=== PATIENT | female | born 2000 | race Caucasian/White ===

== ENCOUNTER → 2021-04-02 11:16 | Outpatient (REF) | payer OTHER, SELFPAY | LOC: ANHLAB 11:16 | PROVIDERS: PCP Family Medicine; Visit Provider Nurse Practitioner | DX: D22.5 Melanocytic nevi of trunk (principal) | CPT/HCPCS: 88305 ==

== ENCOUNTER 2024-02-01 19:26 | Emergency (ER) | payer OTHER, SELFPAY ==
--- NOTE | ~2024-02-01 | CT_ITS ---
CT abdomen pelvis w con Ordering provider: Vanesa Diaz PA-C History: 23 years Female with . RLQ abdominal pain . Comparison: None. Technique: CT abdomen and pelvis with IV and without oral contrast. Automated exposure control and it erative reconstruction technique were employed. The dose-length product was 263.88 mGy-cm. 100 mL Omnipaque 350 was given IV. Findings: VISUALIZED LOWER CHEST: Normal. UPPER ABDOMINAL ORGANS: Liver: Normal. Gallbladder: Normal. Spleen: Normal. Stomach/duodenum: Slightly thickened wall of the stomach. Pancreas: Normal. Slightly prominent pancreatic duct. Adrenals: Normal. Kidneys: Tiny cyst in the left kidney midpole. PELVIC ORGANS: The bladder is underfilled. Uterus: Possibility of arcuate uterus is not excluded. Small left ovarian cyst measuring 1.8 cm. BOWEL AND MESENTERY: Colon: No evidence of diverticulitis. Appendix is normal with minimal fat stranding seen in the right lower quadrant Small Bowel: Normal. No obstruction. Peritoneum/mesentery: No free air or free fluid. No mesenteric lymphadenopathy. RETROPERITONEUM: Normal aorta. No retroperitoneal lymphadenopathy. MUSCULOSKELETAL: Superficial soft tissues: The superficial soft tissues are normal. Bones: Normal spine. IMPRESSION: 1. No definite evidence of appendicitis or intestinal obstruction. 2. Possible arcuate uterus. Ultrasound evaluation advised. Reviewed, dictated and finalized at location A.
[2024-02-01 19:30] VITALS: BP 110/68; PULSE 64; RESP 14; TEMP 36.7; O2SAT 100
[2024-02-01 21:09] VITALS: BP 137/94; PULSE 62; RESP 16; O2SAT 100
[2024-02-01 21:47] LABS: Hematocrit 43.8 % (37.0-47.0); Hemoglobin 15.2 g/dL (12.0-15.0); Mean Corpuscular HGB Conc 34.7 g/dl (32-36); Mean Corpuscular Hemoglobin 32.1 pg (26-34); Mean Corpuscular Volume 92.6 fl (80-100); Mean Platelet Volume 9.8 fl (7.4-10.4); Platelet Count Result 384 k/mm3 (150-375); Red Blood Count 4.73 M/mm3 (4.2-5.4); Red Cell Distribution Width 11.5 % (11.5-14.5); White Blood Count 20.1 K/mm3 (4.5-10.0)
[2024-02-01 21:57] LABS: Alanine Aminotransferase 32 U/L (6-35); Albumin Level 5.4 g/dL (3.5-5.1); Alkaline Phosphatase 85 U/L (38-126); Anion Gap 13 mmol/L (4-12); Aspartate Amino Transferase 41 U/L (14-36); Bilirubin,Total 2.5 mg/dL (0.2-1.3); Blood Urea Nitrogen 27 mg/dL (7-17); Carbon Dioxide 30 mmol/L (22-30); Chloride 92 mmol/L (98-107); Estimated CRCL calculation 73 ml/min; Estimated Glomerular Filt Rate > 60; Glucose 122 mg/dL (65-110); Lipase 115 U/L (23-300); Potassium 3.5 mmol/L (3.4-5.0); Sodium 135 mmol/L (137-145)
[2024-02-01] MEDS: SODIUM CHLORIDE 0.9% IV 1,000 ML 999 ML IV CONT ×2 (22:13→23:11)
[2024-02-01] MEDS: METOCLOPRAMIDE HCL INJ 10 MG/2 ML VIAL IV PUSH (22:14)
[2024-02-01] MEDS: diphenhydrAMINE HCl INJ 50 MG/ML VIAL 25 MG IV PUSH (22:14)
[2024-02-01 22:17] LABS: Lymphocytes Absolute Manual 2.21 K/mm3 (1.1-4.5); Monocytes Absolute Manual 2.01 K/mm3 (0.1-0.90); Monocytes Percent Manual 10 % (3-9); Neutrophils Percent Manual 79 % (46-73); Platelet Estimate Slightly Increased (Adequate); Total Cells Counted 100
[2024-02-01 22:18] LABS: Schistocytes None Seen
[2024-02-01 22:30] LABS: BEDSIDEPREGUCG Negative (Negative)
--- NOTE | 2024-02-01 22:33 | ED.ABDPAIN ---
HPI - Abdominal Pain General Chief Complaint: Abdominal Pain Stated Complaint: appendicitis Time Seen by Provider: 02/01/24 21:15 Source: patient Mode of arrival: ambulatory Limitations: no limitations History of Present Illness HPI narrative: This is a 23 year old female that presents to the ER for nausea and vomiting. Ongoing over the last couple of days. Reports she has not been able to keep anything down. Reports pain in her right lower quadrant. Reports diarrhea. Denies fever, dysuria, hematuria. Related Data Home Medications Medication Instructions Recorded Confirmed medroxyprogesterone 150 mg/mL 150 mg IM [id number] 02/01/20 02/01/20 intramuscular suspension (Depo-Provera) Allergies Allergy/AdvReac Type Severity Reaction Status Date / Time No Known Allergies Allergy Verified 02/01/24 19:27 Review of Systems Review of Systems: CONSTITUTIONAL: Denies fever GASTROINTESTINAL: Reports abdominal pain, nausea, vomiting, and diarrhea. GENITOURINARY: Denies dysuria or hematuria. All systems reviewed & are unremarkable except as noted in HPI and below PMFSH Past Medical History Medical History Branchial cleft cyst Surgical History Surgical History History of removal of cyst Right post-auricular Family History Family History (System 11/25/21 @ 12:11 by Peewee Sheikh) Mother Ovarian cancer Social History Social History (Updated 02/01/24 @ 22:36 by Vanesa Diaz PA-C) Smoking status: Current every day smoker Tobacco type: e-cigarettes/vaping Smokeless tobacco user: other Second hand tobacco smoke exposure: No Alcohol intake: current Substance use: current Substance use type: marijuana Living arrangements: with family Occupation/Education: occupation Gender identity (if verbalized by the patient): Female Exam Narrative: GENERAL: Well-appearing, well-nourished, and in no acute distress. HEAD: Normocephalic, atraumatic. EYES: EOMI. CHEST: Clear to auscultation. No respiratory distress. No wheezes rales or rhonchi HEART: Regular rate and rhythm. No murmur heard. Normal peripheral pulses. ABDOMEN: Soft, nondistended, normal active bowel sounds. Tender to palpation throughout the abdomen, without guarding EXTREMITIES: Normal range of motion. No edema. SKIN: Warm, dry, no rash. NEURO: No focal deficits. Alert and oriented x3. PSYCH: Normal mood and affect Course Course Emergency Course: Patient updated on her workup. Resting comfortably. Reports she is ready for discharge Vital Signs Vital signs: Vital Signs Temperature 98.1 F 02/01/24 19:30 Pulse Rate 64 02/01/24 19:30 Respiratory Rate 14 02/01/24 19:30 Blood Pressure 110/68 02/01/24 19:30 Pulse Oximetry 100 02/01/24 19:30 Oxygen Delivery Room Air 02/01/24 19:30 Temperature 98 F 02/02/24 01:26 Pulse Rate 66 02/02/24 01:26 Respiratory Rate 18 02/02/24 01:26 Blood Pressure 118/65 02/02/24 01:26 Pulse Oximetry 100 02/02/24 01:26 Oxygen Delivery Room Air 02/01/24 19:30 MDM - Abdominal Pain MDM Narrative Medical decision making narrative: Patient presents to the emergency department for abdominal pain, nausea vomiting. Ongoing over the last couple of days. She is afebrile and nontoxic appearing. Her vitals are stable. CBC does show leukocytosis to 20.1, likely from vomiting. Also shows mild hemoconcentration. Metabolic panel with some evidence of dehydration. Patient hydrated with 2 L of IV fluids in the ED. urine with 1+ leuk esterase, 21-50 white blood cells, but also many squamous epithelial cells. Patient does not have any urinary symptoms. Will let this go for culture. CT abdomen and pelvis without acute findings. Shows possible arcuate uterus. Patient updated on her workup. Resting comfortably. Reports she is ready for discharge. Wi
[2024-02-01 22:50] LABS: Add Urine Microscopic? YES; Appearance Urine Cloudy (Clear); Bacteria Urine 1+ /hpf; Bilirubin Urine Negative (Negative); Blood Urine Trace (Negative); Color Urine Dark Yellow (Yellow); Glucose Urine UA Negative (Negative); Ketones Urine 3+ mg/dL (Negative); Leukocyte Esterase Ur 1+ LEU/UL (Negative); Need Manual Microscopic Reviewed; Nitrate Urine Negative (Negative); Protein Urine 2+ mg/dL (Negative); Specific Grav Ur 1.032 (1.001-1.035); Squamous Epithelial Cell Urine Many /hpf (Few); WBC Urine 21-50 /hpf (0-3); pH Urine 6.5 (5.0-9.0)
[2024-02-01 23:45] VITALS: BP 132/74; PULSE 60; RESP 19; TEMP 36.6; O2SAT 100
[2024-02-02] MEDS: HALOPERIDOL LACTATE 5 MG/ML VIAL IM (00:14)
[2024-02-02 01:26] VITALS: BP 118/65; PULSE 66; RESP 18; TEMP 36.6; O2SAT 100
== END 2024-02-02 01:49 | disposition home or self-care (01) ==
PROVIDERS: Emergency Provider Physician Assistant
DX: E86.0 Dehydration (principal); R11.2 Nausea with vomiting, unspecified; R82.81 Pyuria; F17.290 Nicotine dependence, other tobacco product, uncomplicated
CPT/HCPCS: 36415; 74177; 80053; 81001; 81025; 83690; 85025; 87086; 96361; 96372; 96374; 96375; 99284; J1200; J1630; J2765; J7030; Q9967

== ENCOUNTER 2024-03-16 09:02 | Outpatient (CLI) | payer OTHER, SELFPAY ==
[2024-03-16 14:14] LABS: Basophils Absolute Auto 0.1 K/mm3 (0.0-0.1); Basophils Percent Auto 0.6 % (0.2-1.2); Eosinophils Absolute Auto 0.1 K/mm3 (0-0.3); Eosinophils Percent Auto 1.4 % (0-4.4); Hematocrit 45.1 % (37.0-47.0); Hemoglobin 14.4 g/dL (12.0-15.0); Immature Granulocyte Absolute 0.02 K/mm3 (0.00-0.031); Immature Granulocyte Percent A 0.2 % (0-0.5); Lymphocytes Absolute Auto 1.84 K/mm3 (0.9-3.2); Lymphocytes Percent Auto 22.9 % (18.3-44.2); Mean Corpuscular HGB Conc 31.9 g/dl (32-36); Mean Corpuscular Hemoglobin 31.8 pg (26-34); Mean Corpuscular Volume 99.6 fl (80-100); Monocytes Absolute Auto 0.6 K/mm3 (0.1-0.6); Monocytes Percent Auto 6.8 % (2.6-8.5); Neutrophils Absolute Auto 5.5 K/mm3 (1.3-6.7); Neutrophils Percent Auto 68.1 % (45.5-73.1); Platelet Count Result 266 k/mm3 (150-375); Red Blood Count 4.53 M/mm3 (4.2-5.4); Red Cell Distribution Width 11.9 % (11.5-14.5)
[2024-03-16 16:41] LABS: Vitamin D 25 Hydroxy 39.1 ng/mL
[2024-03-16 18:53] LABS: LDL Cholesterol Direct 50 mg/dL
[2024-03-16 18:56] LABS: Alanine Aminotransferase 16 U/L (6-35); Albumin Level 4.5 g/dL (3.5-5.1); Alkaline Phosphatase 55 U/L (38-126); Anion Gap 6 mmol/L (4-12); Aspartate Amino Transferase 29 U/L (14-36); Bilirubin,Total 0.7 mg/dL (0.2-1.3); Blood Urea Nitrogen 15 mg/dL (7-17); Calcium 9.6 mg/dL (8.4-10.2); Carbon Dioxide 30 mmol/L (22-30); Chloride 102 mmol/L (98-107); Cholesterol 156 mg/dL (0-200); Estimated Glomerular Filt Rate > 60; Glucose 60 mg/dL (65-110); HDL Direct 89 mg/dL; Potassium 3.4 mmol/L (3.4-5.0); Sodium 138 mmol/L (137-145); Triglycerides 61 mg/dL (<150)
== END 2024-03-16 09:03 | disposition home or self-care (01) ==
LOC: ANHGOSHLAB 09:03
PROVIDERS: PCP Nurse Practitioner Family; Visit Provider Nurse Practitioner Family
DX: E53.9 Vitamin B deficiency, unspecified (principal); E55.9 Vitamin D deficiency, unspecified; F41.9 Anxiety disorder, unspecified; R74.8 Abnormal levels of other serum enzymes; Z00.00 Encounter for general adult medical examination without abnormal findings; Z13.220 Encounter for screening for lipoid disorders
CPT/HCPCS: 36415; 80053; 80061; 82306; 82607; 84443; 85025

== ENCOUNTER 2025-01-18 08:34 | Emergency (ER) | payer OTHER, SELFPAY ==
--- NOTE | 2025-01-18 08:37 | ED_ITS ---
HPI - General Adult General Chief complaint: Nausea/Vomiting/Diarrhea Stated complaint: VOMITING/COUGHING UP BLOOD Source: patient Mode of arrival: ambulatory Limitations: no limitations History of Present Illness HPI narrative: Pt is a 24 y/o female presenting with her father for evaluation of vomiting. Pt reports N,V with onset Thursday. Pt states she has had a couple episodes of diarrhea. Describes the diarrhea as nonbloody, not containing mucous. Reports blood streaks intermittently in sputum after emesis. Reports sx have improved since onset--able to tolerate sips of PO fluids. States she went to IV drip bar yesterday and has been taking pepcid at home. Of note, pt does take naltrexone for alcohol cravings--admits to consuming 1 alcoholic beverage prior to onset of sx. No known direct sick contacts. No known exposure to foods. no recent abx use. Related Data Home Medications ?Medication ?Instructions ?Recorded ?Confirmed ?Last Taken ?Type aripiprazole 10 mg tablet mg 01/18/25 Unknown History naltrexone 50 mg tablet mg 01/18/25 Unknown History trazodone 50 mg tablet mg 01/18/25 Unknown History Allergies Allergy/AdvReac Type Severity Reaction Status Date / Time No Known Allergies Allergy Verified 01/18/25 08:43 Review of Systems Review of Systems: CONSTITUTIONAL: Denies body aches, fever, chills, or sweats. EYES: Denies visual changes, redness, or discharge. ENT: Denies rhinorrhea, congestion, sore throat, or otalgia. CARDIOVASCULAR: Denies chest pain, palpitations, or edema. RESPIRATORY: Denies cough or dyspnea. GASTROINTESTINAL: reports nausea, vomiting, diarrhea, denies abdominal pain GENITOURINARY: Denies dysuria or hematuria. SKIN: Denies rash, itching, or wounds. MUSCULOSKELETAL: Denies back pain, joint pain, or myalgia. NEUROLOGIC: Denies headache, numbness, tingling, or weakness. PSYCH: Denies depression or anxiety. All systems reviewed & are unremarkable except as noted in HPI and below PMFSH Past Medical History Medical History Branchial cleft cyst Surgical History Surgical History History of removal of cyst Right post-auricular Family History Family History Mother Ovarian cancer Social History Social History Smoking status: Current every day smoker Tobacco type: e-cigarettes/vaping Smokeless tobacco user: other Second hand tobacco smoke exposure: No Alcohol intake: current Substance use: current Substance use type: marijuana Living arrangements: with family Occupation/Education: occupation Gender identity (if verbalized by the patient): Female Exam Narrative: GENERAL: Well-appearing, well-nourished, and in no acute distress. HEAD: Normocephalic, atraumatic. EYES: EOMI. No redness or drainage. Conjunctivae normal. ENT: Mucous membranes pink and moist. NECK: Normal AROM. Supple. No lymphadenopathy. CHEST: No respiratory distress. Clear to auscultation. HEART: Regular rate and rhythm. No murmur appreciated. Normal peripheral pulses. ABDOMEN: mild, generalized abdominal tenderness to palpation, no rebound, no guarding. Soft, nondistended, normal active bowel sounds. EXTREMITIES: Normal range of motion. No edema. SKIN: Warm, dry, no rash. Capillary refill normal. Normal skin turgor. NEURO: No focal deficits. Alert and oriented x3. Gait steady. PSYCH: Normal affect. No signs of depression or anxiety. Course Course Emergency Course: I offered to transfer patient to emergency room for further diagnostic workup including but not limited to blood work, IV hydration. Patient states that her symptoms have improved since onset. no focal abdominal tenderness.. Vital signs are stable. Would like to be discharged home with prescription for Zofran. States she has Pepcid at home. Strict go to ER precautions discussed at length. Discussed elevated blood pressure readings with patient and advised daily BP monitoring and f/u with PCP if persisting. Level of Care: Express Care Visit Vital Signs Vital signs: Vital Signs Temperature 99.1 F 01/18/25 08:43 Pulse Rate 63 01/18/25 08:43 Respiratory Rate 16 01/18/25 08:43 Blood Pressure 134/83 01/18/25 08:43 Pulse Oximetry 100 01/18/25 08:43 Temperature 99.1 F 01/18/25 08:43 Pulse Rate 63 01/18/25 08:43 Respiratory Rate 16 01/18/25 08:43 Blood Pressure 134/83 01/18/25 08:43 Pulse Oximetry 100 01/18/25 08:43 Medical Decision Making Vital Signs Vital Signs: Vital Signs Temperature 99.1 F 01/18/25 08:43 Pulse Rate 63 01/18/25 08:43 Respiratory Rate 16 01/18/25 08:43 Blood Pressure 134/83 01/18/25 08:43 Pulse Oximetry 100 01/18/25 08:43 Temperature 99.1 F 01/18/25 08:43 Pulse Rate 63 01/18/25 08:43 Respiratory Rate 16 01/18/25 08:43 Blood Pressure 134/83 01/18/25 08:43 Pulse Oximetry 100 01/18/25 08:43 Discharge Plan Discharge Clinical Impression: Generalized abdominal pain, Elevated blood pressure reading in office without diagnosis of hypertension Nausea & vomiting Qualifiers: Vomiting type: unspecified Qualified Code(s): R11.2 - Nausea with vomiting, unspecified Patient Disposition: Home Condition: Stable Instructions: Acute Nausea and Vomiting (ED) Additional Instructions: purchase and begin using Pepcid per the package instructions. Go straight to ER should your symptoms become worse or should any new symptoms develop Patient Language: German Prescriptions: New ondansetron 4 mg tablet,disintegrating 4 mg PO Q6-8H PRN (Reason: nausea and vomiting) Qty: 10 0RF No Action trazodone 50 mg tablet naltrexone 50 mg tablet aripiprazole 10 mg tablet Follow-up/Referrals: Nancy Grady, [facility]-C [Primary Care Provider, Family Practice] - 01/19/25 Time of Disposition: 09:10
[2025-01-18 08:43] VITALS: BP 134/83; PULSE 63; RESP 16; TEMP 37.3; O2SAT 100
== END 2025-01-18 09:18 | disposition home or self-care (01) ==
PROVIDERS: Emergency Provider Registered Nurse; PCP Nurse Practitioner Family
DX: R10.84 Generalized abdominal pain (principal); R03.0 Elevated blood-pressure reading, without diagnosis of hypertension; R11.2 Nausea with vomiting, unspecified; F17.290 Nicotine dependence, other tobacco product, uncomplicated; F12.90 Cannabis use, unspecified, uncomplicated
CPT/HCPCS: 99213; G0463

== ENCOUNTER 2025-03-13 15:04 | Outpatient (CLI) | payer OTHER, SELFPAY | END 2025-03-13 15:05 | disposition home or self-care (01) | LOC: ANHGOSHLAB 15:05 | PROVIDERS: PCP Family Medicine; Visit Provider Student in an Organized Health Care Education/Training Program | DX: N94.3 Premenstrual tension syndrome (principal); R10.84 Generalized abdominal pain; R11.2 Nausea with vomiting, unspecified; R19.7 Diarrhea, unspecified | CPT/HCPCS: 36415 ==